=== PATIENT | male | born 1995 | race Caucasian/White ===

== ENCOUNTER → 2021-05-30 13:58 | Outpatient (BNVA) | payer OTHER, SELFPAY | PROVIDERS: PCP Registered Nurse; Visit Provider Registered Nurse | DX: R00.0 Tachycardia, unspecified (principal); F19.90 Other psychoactive substance use, unspecified, uncomplicated | CPT/HCPCS: 80307 ==

== ENCOUNTER → 2021-06-04 10:58 | Outpatient (BNVA) | payer OTHER, SELFPAY | PROVIDERS: PCP Registered Nurse; Visit Provider Registered Nurse | DX: F19.90 Other psychoactive substance use, unspecified, uncomplicated (principal) | CPT/HCPCS: 80307 ==

== ENCOUNTER → 2021-11-01 10:29 | Outpatient (BNVA) | payer SELFPAY | PROVIDERS: PCP Registered Nurse; Visit Provider Registered Nurse | DX: Z20.2 Contact with and (suspected) exposure to infections with a predominantly sexual mode of transmission (principal); A64 Unspecified sexually transmitted disease; F19.90 Other psychoactive substance use, unspecified, uncomplicated; R36.9 Urethral discharge, unspecified | CPT/HCPCS: 81000; 87491; 87591; 87661 ==

== ENCOUNTER 2022-07-24 09:09 | Emergency (ER) | payer BC, MEDICAID, SELFPAY ==
--- NOTE | 2022-07-24 09:15 | ECG_ITS ---
[facility] Test Date: 2022-07-24 Pat Name: Carolina Bertrand Department: Room: Gender: Male Health Specialist: : 1995 Requested By: John Iniguez Order Number: [id number] Rosa MD: Alondra Moreau M.D. Measurements Intervals [place] Rate: 78 P: 65 NV: 161 QRS: 43 QRSD: 95 T: 67 QT: 346 QTc: 395 Interpretive Statements SINUS RHYTHM No previous ECG available for comparison Electronically Signed On 07-24-2022 12:54:14 CYBER CRIME INVESTIGATOR by Alondra Moreau M.D. [id number]
--- NOTE | 2022-07-24 09:15 | XR_ITS ---
WS: [id number] PORTABLE CHEST HISTORY: dyspnea/cough COMPARISON: None available. Lungs are clear and well expanded. No pleural effusion or pneumothorax. Cardiac size: Normal. Mediastinum/Aorta: Normal mediastinum. No osseous abnormality seen. XR/XR chest 1V portable [id number] IMPRESSION: Unremarkable portable chest.
[2022-07-24 09:24] VITALS: BP 148/78; PULSE 95; RESP 14; TEMP 36.7; O2SAT 100; BMI 26.0
[2022-07-24 09:25] LABS: Basophils # 0.1 10^3/uL (0.0-0.1); Basophils % 0.9 %; Eosinophils # 0.2 10^3/uL (0.0-0.8); Eosinophils % 3.5 %; Hematocrit 47.5 % (42.0-52.0); Hemoglobin 15.8 g/dL (11.7-16.6); Lymphocytes # 2.2 10^3/uL (0.8-4.8); Lymphocytes % 31.4 %; Mean Corpuscular HGB Conc 33.3 g/dL (30.0-36.0); Mean Corpuscular Hemoglobin 28.6 pg (28.0-34.0); Mean Corpuscular Volume 85.9 fl (80-94); Mean Platelet Volume 9.3 fL (7.4-10.4); Monocytes # 0.8 10^3/uL (0.2-0.9); Monocytes % 11.4 %; Neutrophils # 3.64 10^3/uL (1.8-7.7); Neutrophils % 52.2 %; Nucleated Red Blood Cells % 0 %; Platelet Count 349 10^3/cmm (130-400); Red Blood Count 5.53 10^6/uL (4.1-5.3); Red Cell Distribution Width 13.2 % (12.1-15.1)
--- NOTE | 2022-07-24 09:33 | PC.PHAR ---
pt is from [facility] [phone] ext [phone] quinn rodriguez states the pt takes no medications
--- NOTE | 2022-07-24 09:35 | W.ED.CHESTPA ---
HPI - Chest Pain General: Chief Complaint: Chest Pain Stated Complaint: cp Time Seen by Provider: 07/24/22 09:14 Source: patient Mode of arrival: EMS History of Present Illness: 26-year-old male presents emergency room via EMS with complaints of chest pain. Patient reports he was lifting weights last night and pulled a muscle this morning and has increased chest pain his pain in his chest and his back on the right side is reproducible with palpation. No fever sweats chills cough shortness of breath. No personal history of cardiac arrhythmias or coronary artery disease. Patient awake alert in no distress. Patient reports awaking with symptoms. MD complaint: chest pain Onset (ago): hour(s) Prior episodes: Yes Onset: awoke with symptoms Pain location: right chest Pain radiation: none Severity: mild Quality: sharp Exacerbating factors: palpation Associated symptoms: Deny abdominal pain, diaphoresis, dyspnea, fever(s), leg edema, nausea, palpitations, sense of impending doom, syncope or vomiting Treatment prior to arrival: aspirin Review of Systems Const: Denies: fever(s), chills, fatigue, malaise or diaphoresis ENMT: Denies: throat pain, ear or mastoid pain, nasal discharge or nasal congestion Card: Reports: chest pain; Denies: palpitations, irregular heart rhythm, edema, swelling of feet/ankles or syncope Resp: Denies: dyspnea GI: Denies: abdominal pain, nausea or vomiting : Denies: flank pain, dysuria, urinary frequency or urinary urgency Skin/Breast: Denies: rash or pruritus PFSH ED PFSH: Medical History Family history of heart disease in male family member before age 55 reports father before the age of 23 Family History Other Family history of heart disease in male family member before age 55 Hypertension Social History Smoking and tobacco status: current every day smoker Alcohol intake: never Adopted: No Caregiver/support person: No Sexually active: Yes Current gender identity: Male Physical Exam Const: GENERAL APPEARANCE: cooperative and comfortable ORIENTATION/CONSCIOUSNESS: Yes awake, Yes oriented to person, Yes oriented to place and Yes oriented to time HENMT: COMMON NORMALS: normocephalic, atraumatic and hearing grossly normal bilaterally HEAD & SCALP: normocephalic and atraumatic Chest: CHEST: Yes localized rib tenderness with anteroposterior compression (Right parasternal lower) Resp: COMMON NORMALS: normal respiratory effort, No retractions, No use of accessory muscles and clear to auscultation bilaterally AUSCULTATION: clear to auscultation bilaterally Cardio: COMMON NORMALS: regular rate, regular rhythm and No murmurs present (Cardio) RATE: regular rate RHYTHM: regular rhythm GI: COMMON NORMALS: Soft to palpation and No hepatosplenomegaly present AUSCULTATION: Yes normoactive bowel sounds PALPATION: Yes Soft to palpation, No Tenderness to palpation present (GI), No Guarding due to palpation present (GI) and Yes No hepatosplenomegaly present Extremity: COMMON NORMALS: normal to inspection, capillary refill normal, no clubbing, cyanosis or edema, no calf tenderness and no pedal edema Neuro: SENSORIUM/ORIENTATION: Yes oriented to person, Yes oriented to place and Yes oriented to time Skin: COMMON NORMALS: no rashes or lesions noted GENERAL SKIN EXAM: no rashes or lesions noted Course Vital Signs: Vital signs: Vital Signs Temperature 98.0 F 07/24/22 09:24 Pulse Rate 101 H 07/24/22 09:54 Respiratory Rate 16 07/24/22 09:54 Blood Pressure 132/78 07/24/22 09:54 Pulse Oximetry 98 07/24/22 09:54 Oxygen Delivery Me thod 07/24/22 09:54 MDM - Chest Pain Medical Decision Making EKG shows normal sinus rhythm no acute changes but laboratory test unremarkable. Pain is reproducible with palpation and follows after pulling a muscle while weightlifting. Discharge home ice anti-inflammatories modify exercise program to avoid further injury follow-up as needed Medical Records I reviewed the patient's medical records. Lab Data I reviewed the patient's lab results. 07/24/22 09:15 07/24/22 09:15 Radiology Impressions Chest X-Ray 07/24/22 09:15 IMPRESSION: Unremarkable portable chest. Laboratory Results WBC 7.0 10^3/uL (4.0-10.0) 07/24/22 09:15 RBC 5.53 10^6/uL (4.1-5.3) H 07/24/22 09:15 Hgb 15.8 g/dL (11.7-16.6) 07/24/22 09:15 Hct 47.5 % (42.0-52.0) 07/24/22 09:15 MCV 85.9 fl (80-94) 07/24/22 09:15 MCH 28.6 pg (28.0-34.0) 07/24/22 09:15 MCHC 33.3 g/dL (30.0-36.0) 07/24/22 09:15 RDW 13.2 % (12.1-15.1) 07/24/22 09:15 Plt Count 349 10^3/cmm (130-400) 07/24/22 09:15 MPV 9.3 fL (7.4-10.4) 07/24/22 09:15 Neut % (Auto) 52.2 % 07/24/22 09:15 Lymph % (Auto) 31.4 % 07/24/22 09:15 [place] % (Auto) 11.4 % 07/24/22 09:15 Eos % (Auto) 3.5 % 07/24/22 09:15 Baso % (Auto) 0.9 % 07/24/22 09:15 Neut # (Auto) 3.64 10^3/uL (1.8-7.7) 07/24/22 09:15 Lymph # (Auto) 2.2 10^3/uL (0.8-4.8) 07/24/22 09:15 [place] # (Auto) 0.8 10^3/uL (0.2-0.9) 07/24/22 09:15 Eos # (Auto) 0.2 10^3/uL (0.0-0.8) 07/24/22 09:15 Baso # (Auto) 0.1 10^3/uL (0.0-0.1) 07/24/22 09:15 Nucleated RBC % (auto) 0 % 07/24/22 09:15 Nucleated RBCs # 0.0 /100WBC 07/24/22 09:15 Sodium 140 mmol/L (136-145) 07/24/22 09:15 Potassium 4.2 mmol/L (3.5-5.1) 07/24/22 09:15 Chloride 102 mmol/L (98-107) 07/24/22 09:15 Carbon Dioxide 28 mmol/L (22-29) 07/24/22 09:15 Anion Gap 14.2 (5-19) 07/24/22 09:15 BUN 14 mg/dL (6-20) 07/24/22 09:15 Creatinine 0.9 mg/dL (0.7-1.2) 07/24/22 09:15 GFR Calculation 101.2 mL/min (90-130) 07/24/22 09:15 Glucose 81 mg/dL (65-115) 07/24/22 09:15 Calculated Osmolality 290 mOsm/kg (285-295) 07/24/22 09:15 Calcium 9.3 mg/dL (8.5-10.5) 07/24/22 09:15 Total Bilirubin 0.5 mg/dL (0.15-1.2) 07/24/22 09:15 AST 33 U/L (0-40) 07/24/22 09:15 ALT 46 U/L (0-41) H 07/24/22 09:15 Alkaline Phosphatase 72 U/L (40-130) 07/24/22 09:15 Total Protein 7.1 g/dL (6.6-8.7) 07/24/22 09:15 Albumin 4.5 g/dL (3.5-5.2) 07/24/22 09:15 Globulin 2.6 g/dL (1.3-4.6) 07/24/22 09:15 Discharge Plan Discharge Patient Disposition: Home Clinical Impression: Acute chest wall pain Condition: Stable Prescriptions: New diclofenac sodium 75 mg tablet,delayed release (DR/EC) 75 mg PO Q12H PRN (Reason: pain) Qty: 20 0RF Discharge Orders: Discharge ED (Routine); Ordered 07/24/22 Ordered By: John Dotson Referrals: Lida Phipps FNP [Nurse Practitioner] - Discharge Diet: Usual diet Discharge Activity: Increase activity as tolerated Patient Instructions: Opioid Safety, Pain Management Activity Restrictions/Additional Instructions: You were seen today for chest pain. EKG was unremarkable your labs are unremarkable and vital signs are stable. Pain is reproducible with palpation. Given low risk factors, and your findings on exam is felt to musculoskeletal chest pain you can use diclofenac as needed. Use ice as needed. Recommend modifying your weightlifting program to avoid further injury. Coding Level of Care Code ED Stock Wetter for Chg Fwd Exam Comprehensive
[2022-07-24 09:49] LABS: Alanine Aminotransferase 46 U/L (0-41); Albumin Level 4.5 g/dL (3.5-5.2); Alkaline Phosphatase 72 U/L (40-130); Anion Gap 14.2 (5-19); Aspartate Amino Transferase 33 U/L (0-40); Blood Urea Nitrogen 14 mg/dL (6-20); Calcium 9.3 mg/dL (8.5-10.5); Carbon Dioxide 28 mmol/L (22-29); Chloride 102 mmol/L (98-107); Globulin 2.6 g/dL (1.3-4.6); Glomerular Filtration Rate 101.2 mL/min (90-130); Glucose 81 mg/dL (65-115); Osmolality Calculated 290 mOsm/kg (285-295); Potassium 4.2 mmol/L (3.5-5.1); Sodium 140 mmol/L (136-145); Total Bilirubin 0.5 mg/dL (0.15-1.2); Total Protein 7.1 g/dL (6.6-8.7)
[2022-07-24 09:54] VITALS: BP 132/78; PULSE 101; RESP 16; O2SAT 98
== END 2022-07-24 10:22 | disposition home or self-care (01) ==
PROVIDERS: Emergency Provider Family Medicine; PCP Nurse Practitioner Family
DX: R07.89 Other chest pain (principal)
CPT/HCPCS: 71045; 80053; 85025; 93005; 99285

== ENCOUNTER 2023-12-29 12:56 | Emergency (ER) | payer BC, MEDICAID, SELFPAY ==
[2023-12-29 13:00] VITALS: BP 131/81; PULSE 84; RESP 15; TEMP 36.4; O2SAT 98
--- NOTE | 2023-12-29 13:06 | XR_ITS ---
WS: [id number] Right knee, 3 views, 12/29/2023 Clinical Data: injury Comparison: None. Findings: No fractures or dislocations are seen. The joint spaces are normal. The patella is intact. The soft t issues are unremarkable. XR/XR knee RT 3V* [id number] Impression: Negative right knee. Kellgren-Dave Classification: grade 0 (none): definite absence of x-ray edwina nges of osteoarthritis
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
--- NOTE | 2023-12-30 11:01 | DCPLANNER ---
message sent to ortho for an er f/u
== END 2023-12-29 13:33 | disposition home or self-care (01) ==
PROVIDERS: Emergency Provider Emergency Medicine; PCP Nurse Practitioner Family
DX: S83.91XA Sprain of unspecified site of right knee, initial encounter (principal); F17.210 Nicotine dependence, cigarettes, uncomplicated; X58.XXXA Exposure to other specified factors, initial encounter
CPT/HCPCS: 73562; 99283

== ENCOUNTER → 2024-01-04 14:49 | Outpatient (BNVA) | payer BC, MEDICAID, SELFPAY | PROVIDERS: PCP Nurse Practitioner Family; Visit Provider Nurse Practitioner | DX: M25.361 Other instability, right knee; M25.561 Pain in right knee | CPT/HCPCS: 73560; 73565 ==

== ENCOUNTER 2024-01-25 07:15 | Outpatient (CLI) | payer BC, MEDICAID, SELFPAY ==
--- NOTE | 2024-01-25 07:15 | MR_ITS ---
WS: [id number] MRI RIGHT KNEE NONCONTRAST TECHNIQUE: Axial PD, coronal PD fat sat, coronal PD, sagittal PD, and sagittal PD fat-sat images obta ined. CLINICAL INFORMATION: M25.561 - Pain in right knee COMPARISON: None. FINDINGS: Distal quadriceps and patella tendons are intact. Hypertrophic patella. Diffuse contusion involving t he anterior lateral femoral condyle and posterolateral tibial plateau. Additional contusion involving the posterior medial tibial plateau. High-grade tear involving the ACL with some intact fibers visua lized on the coronal imaging. Normal PCL. Partial tear involving the lateral collateral ligament and popliteus with diffuse increased signal. D istal LCL appears intact. Suspected capsular tear peripheral lateral meniscus. Normal medial collater al ligament. Medial and lateral meniscus otherwise appear intact. Normal fibula head. Increased fluid and signal along the arcuate ligament. Recommend correlation for posterolateral corner injury. MR/MR knee RT wo con* [id number] IMPRESSION: 1. Diffuse increased signal and irregularity of of the ACL consistent with par tial high-grade tear. 2. Normal PCL. 3. Bony contusion involving the anterolateral femoral condyle and posterolater al tibial plateau. Contusion involving the posterior medial tibial plateau. 4. Partial tear involving the lateral collateral ligament and popliteus at the origin. Distal LCL appears intact. 5. Increased fluid and signal along the arcuate ligament. Recommend correlatio n for posterolateral corner injury. 6. Suspected capsular tear peripheral lateral meniscus. 7. Small suprapatellar effusion. Outbridge grading: grade II: blister-like swelling/fraying of articular cartila ge extending to surface
== END 2024-01-25 10:06 | disposition home or self-care (01) ==
PROVIDERS: PCP Nurse Practitioner Family; Visit Provider Nurse Practitioner
DX: S83.421A Sprain of lateral collateral ligament of right knee, initial encounter (principal); S80.02XA Contusion of left knee, initial encounter; M79.4 Hypertrophy of (infrapatellar) fat pad; M25.361 Other instability, right knee
CPT/HCPCS: 73721

== ENCOUNTER → 2024-02-03 14:08 | Outpatient (BNVA) | payer BC, MEDICAID, SELFPAY | PROVIDERS: PCP Nurse Practitioner Family; Visit Provider Nurse Practitioner | DX: M25.361 Other instability, right knee (principal) | CPT/HCPCS: 36415; 80053; 81003; 81015; 85025 ==

== ENCOUNTER → 2024-03-11 10:41 | Outpatient (BNVA) | payer BC, MEDICAID, SELFPAY | PROVIDERS: PCP Nurse Practitioner Family; Visit Provider Nurse Practitioner | DX: M25.561 Pain in right knee (principal) | CPT/HCPCS: 73560; 73565 ==

== ENCOUNTER → 2025-03-22 08:16 | Outpatient (BNVA) | payer SELFPAY | PROVIDERS: PCP Nurse Practitioner Family; Visit Provider Podiatrist Foot & Ankle Surgery | DX: M79.671 Pain in right foot (principal); S92.302 Fracture of unspecified metatarsal bone(s), left foot; X58.XXXD Exposure to other specified factors, subsequent encounter | CPT/HCPCS: 73630 ==